=== PATIENT | female | born 1945 | race Caucasian/White ===

== ENCOUNTER 2020-05-13 18:09 | Emergency (ER) | payer OTHER ==
[2020-05-13 18:39] VITALS: BMI 22.0
[2020-05-13] MEDS ORDERED: LIDO 2%/EPI 1:200000 PRESRVFRE (20 ML SDVIAL) NR ONE (19:52)
[2020-05-13] MEDS ORDERED: LIDOCAINE HCL 2% (20ML MULTI-DOSE VIAL) ONE (19:55)
[2020-05-13] MEDS ORDERED: LIDOCAINE 1%/EPI 1:100000 (50 ML MULTI DOSE VIAL) ONE (19:59)
[2020-05-13] MEDS ORDERED: LIDOCAINE 1%/EPI 1:100000 (50 ML MULTI DOSE VIAL) INF ONE (19:59)
[2020-05-13] MEDS ORDERED: DIPHTH,PERTUSS(ACELL),TET 0.5 ML DISP.SYRIN IM ONE ×2 (21:21→21:24)
[2020-05-13 22:21] VITALS: TEMP 97.1
[2020-05-14 01:30] VITALS: BP 136/84; PULSE 83
== END 2020-05-14 01:30 | disposition home or self-care (01) ==
LOC: JER 18:09
DX: S01.81XA Laceration without foreign body of other part of head, initial encounter (principal)
CPT/HCPCS: 70450-TC; 71045-TC-FY; 72125-TC; 72170-TC-FY; 90715; 99282-25